=== PATIENT | male | born 1945 | race Caucasian/White ===

== ENCOUNTER 2017-09-25 06:42 | Day surgery (SDC) | payer MEDICARE, BC, OTHER ==
[~2017-09-25 06:42] MED LIST: ACETAZOLAMIDE 250 MG PO ONE
[2017-09-25] MEDS: PROPARACAINE HCL 0.5% OPHTHALMIC SOL ONE ×3 (06:49→08:06)
[2017-09-25] MEDS: KETOROLAC 0.5% OPTH 60 DROP SOL ONE ×2 (06:50→07:01)
[2017-09-25] MEDS: PHENYLEPHRINE HCL 10% OPHTHAL SOL ONE ×2 (06:50→07:01)
[2017-09-25] MEDS: CYCLOPENTOLATE 1% SOL ONE ×2 (06:51→07:02)
[2017-09-25] MEDS ORDERED: MIDAZOLAM 2 MG/2 ML SOL ONE (07:41)
[2017-09-25] MEDS ORDERED: FENTANYL 100MCG/2ML SOL ONE (07:41)
[2017-09-25] MEDS ORDERED: LIDOCAINE HCL 1% MPF SOL ONE (08:01)
[2017-09-25] MEDS ORDERED: BSS 500 ML 500 ML IR ONE (08:01)
[2017-09-25] MEDS ORDERED: POVIDONE IODINE 5% SOL ONE (08:01)
[2017-09-25 08:36] VITALS: BP 130/76; PULSE 68; RESP 18; TEMP 97.6; O2SAT 96
== END 2017-09-25 09:00 | disposition home or self-care (01) | DRG 125 ==
LOC: SURG 06:42
PROVIDERS: ATTEND Ophthalmology
DX: H25.9 Unspecified age-related cataract (principal); E11.9 Type 2 diabetes mellitus without complications; Z79.4 Long term (current) use of insulin
CPT/HCPCS: 82962; J2250; J3010; A9270-GY; J2001

== ENCOUNTER 2017-10-23 08:11 | Day surgery (SDC) | payer MEDICARE, BC ==
[2017-10-23] MEDS ORDERED: ACETAZOLAMIDE 250 MG PO ONE (08:16)
[2017-10-23 08:26] VITALS: TEMP 97.5
[2017-10-23] MEDS: PROPARACAINE HCL 0.5% OPHTHALMIC SOL ONE ×3 (08:30→09:47)
[2017-10-23] MEDS: CYCLOPENTOLATE 1% SOL ONE ×2 (08:30→08:44)
[2017-10-23] MEDS: PHENYLEPHRINE HCL 10% OPHTHAL SOL ONE ×2 (08:30→08:43)
[2017-10-23] MEDS: KETOROLAC 0.5% OPTH 60 DROP SOL ONE ×2 (08:31→08:45)
[2017-10-23] MEDS ORDERED: MIDAZOLAM 2 MG/2 ML SOL ONE (08:36)
[2017-10-23] MEDS ORDERED: POVIDONE IODINE 5% SOL ONE (09:31)
[2017-10-23] MEDS ORDERED: LIDOCAINE HCL 1% MPF SOL ONE (09:31)
[2017-10-23] MEDS ORDERED: TRIAMCINOLONE ACETONIDE 10 MG/ML VIAL ONE (09:31)
[2017-10-23] MEDS ORDERED: BSS 500 ML 500 ML IR ONE (09:31)
[2017-10-23 10:16] VITALS: BP 153/74; PULSE 74; RESP 20; O2SAT 97
== END 2017-10-23 10:32 | disposition home or self-care (01) | DRG 125 ==
LOC: SURG 08:11
PROVIDERS: ATTEND Ophthalmology
DX: H25.9 Unspecified age-related cataract (principal)
CPT/HCPCS: J2250; A9270-GY; J2001